=== PATIENT | female | born 1980 | race Caucasian/White ===

== ENCOUNTER 2018-12-26 00:44 | Emergency (ER) | payer OTHER ==
[2018-12-26 01:33] VITALS: BP 123/74; PULSE 89; TEMP 98.2
--- NOTE | 2018-12-26 01:33 | PDOC ---
*Physical Exam - Vital Signs Last Vital Signs Temp Pulse Resp BP Pulse Ox 98.2 F 89 19 123/74 99 12/26/18 00:45 12/26/18 00:45 12/26/18 00:45 12/26/18 00:45 12/26/18 00:45 Medical Decision Making - Medical Decision Making 12/26/18 01:33 Patient seen by the advanced practice provider under my direct supervision. Ancillary testing reviewed as necessary. I agree with plan as outlined by the advanced practice provider. Discharge - Discharge Information Problems reviewed: Yes Clinical Impression/Diagnosis: Facial laceration Qualifiers: Encounter type: initial encounter Qualified Code(s): S01.81XA - Laceration without foreign body of other part of head, initial encounter Condition: Fair - Follow up/Referral Referrals: Bertram Mg [Primary Care Provider] - - Patient Discharge Instructions - Post Discharge Activity
[2018-12-26] MEDS ORDERED: DIPHTH,PERTUSS(ACELL),TET 0.5 ML DISP.SYRIN IM ONE ×2 (01:52→02:03)
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
== END 2018-12-26 03:35 | disposition home or self-care (01) ==
LOC: JER 00:44
PROC: 0HQ1XZZ Repair Face Skin, External Approach (ICD-10-PCS; principal; 2018-12-26)
DX: S01.81XA Laceration without foreign body of other part of head, initial encounter (principal); W22.03XA Walked into furniture, initial encounter; Y93.89 Activity, other specified; Y92.89 Other specified places as the place of occurrence of the external cause
CPT/HCPCS: 12013; 90715; 99283-25